=== PATIENT | male | born 2000 | race Caucasian/White ===

== ENCOUNTER 2020-11-05 11:31 | Emergency (ER) | payer OTHER ==
[~2020-11-05 11:31] MED LIST: BACTROBAN OINT22 GM EXT; CLINDAMYCIN HC300 MG PO; CYCLOBENZAPRINE10 MG PO; DOXYCYCLINE MO100 MG PO; LODINE CAP 300300 MG PO; NAPROSYN500 MG PO
[2020-11-05] MEDS ORDERED: CLEOCIN HCL300 MG PO (15:06)
== END 2020-11-05 15:13 | disposition home or self-care (01) ==
LOC: ER1 11:31
DX: S66.126A Laceration of flexor muscle, fascia and tendon of right little finger at wrist and hand level, initial encounter (principal); F17.210 Nicotine dependence, cigarettes, uncomplicated; Z88.0 Allergy status to penicillin; Z88.1 Allergy status to other antibiotic agents; W26.0XXA Contact with knife, initial encounter; Y92.009 Unspecified place in unspecified non-institutional (private) residence as the place of occurrence of the external cause
CPT/HCPCS: 12001; 73130; 99283

== ENCOUNTER 2021-01-29 17:09 | Emergency (ER) | payer OTHER ==
[~2021-01-29 17:09] MED LIST changes: +CLEOCIN HCL300 MG PO
[2021-01-29] MEDS ORDERED: NAPROSYN500 MG PO (18:05)
== END 2021-01-29 18:26 | disposition home or self-care (01) ==
LOC: ER1 17:09
DX: S93.601A Unspecified sprain of right foot, initial encounter (principal); Z79.899 Other long term (current) drug therapy; Z88.0 Allergy status to penicillin; Z88.1 Allergy status to other antibiotic agents; V86.59XA Driver of other special all-terrain or other off-road motor vehicle injured in nontraffic accident, initial encounter; Y92.410 Unspecified street and highway as the place of occurrence of the external cause
CPT/HCPCS: 73630; 99283